=== PATIENT | male | born 1945 | race Two or more races ===

== ENCOUNTER 2018-01-30 15:00 | Outpatient (CLI) | payer MEDICARE, OTHER | END 2018-01-30 23:59 | disposition home or self-care (01) | LOC: MSC 15:00 | PROVIDERS: ATTEND Anesthesiology | DX: M51.36 Other intervertebral disc degeneration, lumbar region (principal); M96.1 Postlaminectomy syndrome, not elsewhere classified; M79.606 Pain in leg, unspecified; M25.9 Joint disorder, unspecified; M47.26 Other spondylosis with radiculopathy, lumbar region; M79.2 Neuralgia and neuritis, unspecified; Z79.899 Other long term (current) drug therapy ==